=== PATIENT | female | born 1950 | race Caucasian/White ===

== ENCOUNTER → 2016-12-06 | Outpatient (CLI) | payer MEDICARE, OTHER ==
[~2016-12-06] MED LIST: CELEXA20 MG PO; HYDROCODONE BIT1 T11 PO; NAPROSYN500 MG PO; NORCO 325 MG-51 TAB PO; SIMVASTATIN20 MG; SYNTHROID,LEV112 MCG PO; VICODIN 5/500 505 MG PO; VIGAMOX 0.5% 3 M3 ML OPH; ZOFRAN4 MG PO
== END | disposition home or self-care (01) ==
LOC: US 14:36
DX: K76.0 Fatty (change of) liver, not elsewhere classified (principal); R10.11 Right upper quadrant pain

== ENCOUNTER → 2017-06-04 | Outpatient (CLI) | payer MEDICARE, OTHER | LOC: MAMMO 07:27 | DX: Z12.31 Encounter for screening mammogram for malignant neoplasm of breast (principal) ==

== ENCOUNTER → 2017-07-11 | Day surgery (SDC) | payer MEDICARE, OTHER ==
[~2017-07-11] VITALS: Ht 162.5 cm; Wt 90.7 kg
[~2017-07-11] MED LIST changes: +GABAPENTIN600 MG PO; +SIMVASTATIN10 MG PO
--- NOTE | ~2017-07-11 | O ---
[place], [place] OPERATIVE NOTE NAME: MENG SAMS UNIT #: [id number] ROOM: DOCTOR: LATOYA RIOS MD BIRTHDATE: [birth year] DOS: 07/11/2017 GASTROENDOSCOPIC REPORT. INDICATIONS: The patient has presented with colonic screening concerns. PROCEDURE: Today's procedure part of investigation is colonoscopy plus polypectomies. PREMEDICATION: Versed and Diprivan. SCOPE: Olympus folding colonoscope 10L video. REPORT: After putting the patient in left lateral position and application of lubricant to rectal pouch and digital examination, scope was introduced. Thereafter, under direct visualization, I advanced through the length of colon without difficulty. Base of the cecum explored. Upon source identified ileocecal valve was defined. A 2 Sessile polypoid lesion from hepatic flexure, 1 sessile polypoid lesion from the rectal pouch was removed with piecemeal polypectomy technique. Evidence of moderate to severe diverticulosis, sigmoid colon was identified. Photographic series obtained. Air was suctioned out. The patient was extubated, tolerated procedure well. IMPRESSION: Diverticulosis, sessile polypoid lesion in rectal pouch and hepatic flexure, status post piecemeal polypectomy. PLAN: High fiber fruit diet. ACTIVITY: Ad kathleen. FOLLOWUP: Routinely with you in office, p.r.n. Visit with us in [facility]. I thank you very much indeed for your kind referral. [place], [place] OPERATIVE NOTE NAME: FLAQUITAMENG UNIT #: [id number] ROOM: DOCTOR: LATOYA RIOS MD BIRTHDATE: [birth year] LATOYA RIOS MD CM:OPRECORD:OPERATIVE NOTE [id number] LATOYA RIOS MD 07/11/17 1053 interface
--- NOTE | ~2017-07-11 | O ---
[place], [place] OPERATIVE NOTE NAME: MENG SAMS UNIT #: [id number] ROOM: DOCTOR: LATOYA RIOS MD BIRTHDATE: [birth year] DOS: 07/11/2017 GASTROENDOSCOPIC REPORT HISTORY OF PRESENT ILLNESS: A 67-year-old patient who is presented with chief complaint of concern about colonic screening as well persistent dyspepsia. ALLERGIES: SULFA. FAMILY HISTORY: Associated brother with pancreatic carcinoma. PAST SURGICAL HISTORY: Hysterectomy, tonsillectomy, and parathyroidectomy. PAST MEDICAL HISTORY: Hypothyroidism. SOCIAL HISTORY: Nonsmoker and nonalcohol consumer. PROCEDURE: Today's procedure part of investigation is panendoscopy and colonoscopy. PREMEDICATION: Versed and Diprivan. SCOPE: Olympus forward-viewing gastroscope Q10 video. REPORT: After putting the patient in left lateral position and application of lubricant to the scope, the scope was introduced. Thereafter, under direct visualization, I advanced through the length of esophagus without difficulty. Gastric pouch was entered. Gastritis of mild degree was noticed. Antral biopsy obtained. Duodenal bulb, second and third part within normal limit. The patient extubated, tolerated procedure well. IMPRESSION: Gastritis. PLAN AND DISCUSSION: The patient has been on Aleve, that could be the contributing factor. Therefore, we are going to start her on omeprazole 20 mg 1 a day and that would take care of her dyspepsia symptom. On the other hand, she is for colonic screening. We are going to proceed with colonoscopy today. [place], [place] OPERATIVE NOTE NAME: JANUARY SAMSINE Sanya UNIT #: [id number] ROOM: DOCTOR: LATOYA RIOS MD BIRTHDATE: [birth year] LATOYA RIOS MD CM:OPRECORD:OPERATIVE NOTE [phone] LATOYA RIOS MD 07/11/17 1047 interface
[2017-07-11 08:28] VITALS: BP 127/58
[2017-07-11 09:41] VITALS: BP 79/47
[2017-07-11 09:56] VITALS: BP 106/50
[2017-07-11 10:11] VITALS: BP 113/52
== END | disposition home or self-care (01) ==
LOC: SDC 07-08 11:00
DX: Z12.11 Encounter for screening for malignant neoplasm of colon (principal); K29.50 Unspecified chronic gastritis without bleeding; D12.3 Benign neoplasm of transverse colon; D12.8 Benign neoplasm of rectum; Z88.1 Allergy status to other antibiotic agents; Z90.710 Acquired absence of both cervix and uterus; E03.9 Hypothyroidism, unspecified; Z98.890 Other specified postprocedural states; K57.30 Diverticulosis of large intestine without perforation or abscess without bleeding; Z82.49 Family history of ischemic heart disease and other diseases of the circulatory system

== ENCOUNTER → 2018-06-25 | Outpatient (CLI) | payer MEDICARE, OTHER ==
[2018-06-25 11:09] LABS: ALBUMIN 3.4 gm/dl (3.1-4.5); ALKALINE PHOSPHATASE 79 U/L (45-117); BUN 19 mg/dl (7-24); CHLORIDE 105 mmol/L (98-107); POTASSIUM 4.6 mmol/L (3.5-5.1); SGOT/AST 20 IU/L (3-35); SGPT/ALT 28 U/L (12-78); SODIUM 140 mmol/L (136-145); TOTAL PROTEIN 7.2 gm/dL (6.4-8.2)
== END | disposition home or self-care (01) ==
LOC: LAB 01:14 → CT 11:00
PROVIDERS: Family Medicine
DX: K76.0 Fatty (change of) liver, not elsewhere classified (principal)

== ENCOUNTER → 2020-07-06 | Outpatient (CLI) | payer MEDICARE | END | disposition home or self-care (01) | LOC: MAMMO 01:18 | PROVIDERS: ATTEND Nurse Practitioner Family | DX: Z12.31 Encounter for screening mammogram for malignant neoplasm of breast (principal); N63.11 Unspecified lump in the right breast, upper outer quadrant; N63.10 Unspecified lump in the right breast, unspecified quadrant; N64.89 Other specified disorders of breast ==

== ENCOUNTER → 2021-02-13 | Outpatient (CLI) | payer MEDICARE ==
[2021-02-13 09:11] LABS: HEMATOCRIT 37.1 % (37.0-47.0); MEAN CELL VOLUME 100.3 fl (81.0-99.0); MEAN CORPUSCULAR HGB 32.7 pg (27.0-31.0); MEAN CORPUSCULAR HGB CONC 32.6 g/dl (33.0-37.0); MEAN PLATELET VOLUME 9.7 fl (9.6-12.3); RED BLOOD COUNT 3.7 10*6/uL (4.10-5.10); RED CELL DISTRI WIDTH 12.7 % (0-14.5); WHITE BLOOD COUNT 6.1 10*3/uL (4.8-10.8)
[2021-02-13 09:43] LABS: ALBUMIN 3.5 gm/dl (3.1-4.5); ALKALINE PHOSPHATASE 76 U/L (45-117); BUN 31 mg/dl (7-24); CHLORIDE 110 mmol/L (98-107); CHOLESTEROL 216 mg/dL (<200); CPK 118 U/L (26-192); CREATININE 0.94 mg/dL (0.55-1.02); LDL CHOLESTEROL 139 mg/dL (9-159); SGOT/AST 14 IU/L (3-35); SGPT/ALT 24 U/L (12-78); SODIUM 142 mmol/L (136-145); TOTAL PROTEIN 6.8 gm/dL (6.4-8.2); TRIGLYCERIDES 87 mg/dl (<150)
[2021-02-13 09:47] LABS: THYROID STIM HORMONE (HS) 0.383 uIU/ml (0.358-4.75)
== END | disposition home or self-care (01) ==
LOC: LAB 08:38
PROVIDERS: ATTEND Family Medicine
DX: E78.00 Pure hypercholesterolemia, unspecified (principal); E03.9 Hypothyroidism, unspecified; F41.1 Generalized anxiety disorder

== ENCOUNTER → 2021-05-28 | Outpatient (CLI) | payer MEDICARE ==
[2021-05-28 08:38] LABS: HEMATOCRIT 37.6 % (37.0-47.0); MEAN CORPUSCULAR HGB 32.7 pg (27.0-31.0); MEAN CORPUSCULAR HGB CONC 32.7 g/dl (33.0-37.0); MEAN PLATELET VOLUME 9.6 fl (9.6-12.3); RED BLOOD COUNT 3.76 10*6/uL (4.10-5.10); RED CELL DISTRI WIDTH 12.9 % (0-14.5); WHITE BLOOD COUNT 7.4 10*3/uL (4.8-10.8)
[2021-05-28 09:01] LABS: CHLORIDE 109 mmol/L (98-107); POTASSIUM 4.1 mmol/L (3.5-5.1); SODIUM 142 mmol/L (136-145)
[2021-05-28 09:16] LABS: ALBUMIN 3.3 gm/dl (3.1-4.5); ALKALINE PHOSPHATASE 83 U/L (45-117); BUN 22 mg/dl (7-24); CHOLESTEROL 181 mg/dL (<200); CPK 69 U/L (26-192); CREATININE 0.98 mg/dL (0.55-1.02); LDL CHOLESTEROL 95 mg/dL (9-159); SGOT/AST 16 IU/L (3-35); SGPT/ALT 23 U/L (12-78); THYROID STIM HORMONE (HS) 0.356 uIU/ml (0.358-4.75); TOTAL PROTEIN 6.9 gm/dL (6.4-8.2); TRIGLYCERIDES 104 mg/dl (<150)
== END | disposition home or self-care (01) ==
LOC: LAB 08:10
PROVIDERS: ATTEND Family Medicine
DX: I10 Essential (primary) hypertension (principal); E78.00 Pure hypercholesterolemia, unspecified; F41.1 Generalized anxiety disorder; E74.00 Glycogen storage disease, unspecified

== ENCOUNTER 2022-06-23 00:04 | Emergency (ER) | payer MEDICARE ==
[~2022-06-23] VITALS: Ht 162.5 cm; Wt 81.6 kg
[2022-06-23 00:14] VITALS: BP 121/67
[2022-06-23 00:31] LABS: BASO % 0.4 % (0.0-1.0); EOS # 0.6 10*3/uL (0.0-0.4); EOS % 5.8 % (1.0-4.0); HEMATOCRIT 37.9 % (37.0-47.0); LYMPH # 3.5 10*3/uL (1.3-4.4); LYMPH % 36.6 % (27.0-41.0); MEAN CELL VOLUME 99.5 fl (81.0-99.0); MEAN CORPUSCULAR HGB 32.5 pg (27.0-31.0); MEAN CORPUSCULAR HGB CONC 32.7 g/dl (33.0-37.0); MEAN PLATELET VOLUME 9.4 fl (9.6-12.3); MONO # 0.7 10*3/uL (0.1-1.0); MONO % 7.7 % (3.0-9.0); NEUT # 4.8 10*3/uL (2.3-7.9); NEUT % 49.3 % (47.0-73.0); PLATELET COUNT AUTOMATED 237 10*3/uL (130-400); RED BLOOD COUNT 3.81 10*6/uL (4.10-5.10); WHITE BLOOD COUNT 9.6 10*3/uL (4.8-10.8)
[2022-06-23 00:38] LABS: BILIRUBIN Negative (Negative); BLOOD Negative (Negative); CLARITY Clear (Clear); COLOR Yellow (Yellow); GLUCOSE Negative (Negative); KETONE Negative (Negative); LEUKO ESTERASE 3+ (Negative); NITRITE Negative (Negative); UROBILINOGEN 0.2 E.U./dl (0.0-1.0)
[2022-06-23 00:45] LABS: BACTERIA 2+; WBC 21-30 wbc/hpf (0-5)
[2022-06-23 00:46] LABS: ALKALINE PHOSPHATASE 78 U/L (46-116); BUN 16 mg/dl (9-23); CHLORIDE 103 mmol/L (98-107); LIPASE 67 U/L (12-53); POTASSIUM 4.4 mmol/L (3.4-5.1); SGPT/ALT 11 U/L (10-49); TOTAL PROTEIN 6.8 gm/dL (6.0-8.0)
[2022-06-23] MEDS ORDERED: Ondansetron4 MG PO (01:40)
[2022-06-23] MEDS ORDERED: PERCOCET 5-3251 EACH PO (01:40)
[2022-06-23] MEDS ORDERED: CEFDINIR300 MG PO (01:40)
== END 2022-06-23 01:55 | disposition home or self-care (01) ==
LOC: ED 00:04
PROVIDERS: Emergency Medicine
DX: N10 Acute pyelonephritis (principal); R10.11 Right upper quadrant pain; R10.31 Right lower quadrant pain; Z88.2 Allergy status to sulfonamides; Z88.1 Allergy status to other antibiotic agents; Z90.710 Acquired absence of both cervix and uterus; Z98.890 Other specified postprocedural states; Z90.89 Acquired absence of other organs

== ENCOUNTER → 2022-07-10 | Outpatient (CLI) | payer MEDICARE ==
[~2022-07-10] MED LIST changes: +CEFDINIR300 MG PO; +Ondansetron4 MG PO; +PERCOCET 5-3251 EACH PO
== END | disposition home or self-care (01) ==
LOC: NM 07:00
PROVIDERS: ATTEND Family Medicine
DX: R10.11 Right upper quadrant pain (principal); R11.0 Nausea; K30 Functional dyspepsia; R19.7 Diarrhea, unspecified

== ENCOUNTER → 2024-06-30 | Outpatient (CLI) | payer MEDICARE | END | disposition home or self-care (01) | LOC: MAMMO 00:35 | PROVIDERS: ATTEND Family Medicine | DX: Z12.31 Encounter for screening mammogram for malignant neoplasm of breast (principal) ==

== ENCOUNTER 2024-11-26 07:08 | Emergency (ER) | payer MEDICARE ==
[~2024-11-26] VITALS: Ht 167.6 cm; Wt 81.6 kg
[2024-11-26 07:08] VITALS: BP 174/55
[2024-11-26] MEDS ORDERED: SODIUM CHLORIDE 0.9% 1,000 ML IV ONE (07:15)
[2024-11-26] MEDS ORDERED: diazePAM 5 MG TAB PO ONE (07:15)
[2024-11-26] MEDS ORDERED: Meclizine Hydrochloride 25 MG TAB PO ONE ×2 (07:15→09:15)
[2024-11-26] MEDS ORDERED: Ondansetron Hydrochloride 4 MG/2 ML VIAL IV ONE (07:15)
[2024-11-26 07:43] LABS: BASO % 0.8 % (0.0-1.0); EOS # 0.3 10*3/uL (0.0-0.4); EOS % 5.1 % (1.0-4.0); HEMATOCRIT 32.5 % (37.0-47.0); MEAN CELL VOLUME 100.6 fl (81.0-99.0); MEAN CORPUSCULAR HGB 32.8 pg (27.0-31.0); MEAN CORPUSCULAR HGB CONC 32.6 g/dl (33.0-37.0); MEAN PLATELET VOLUME 9.4 fl (9.6-12.3); MONO # 0.4 10*3/uL (0.1-1.0); MONO % 7.2 % (3.0-9.0); NEUT # 2.9 10*3/uL (2.3-7.9); NEUT % 55.1 % (47.0-73.0); PLATELET COUNT AUTOMATED 186 10*3/uL (130-400); RED BLOOD COUNT 3.23 10*6/uL (4.10-5.10); RED CELL DISTRI WIDTH 13.6 % (0-14.5); WHITE BLOOD COUNT 5.3 10*3/uL (4.8-10.8)
[2024-11-26 08:13] LABS: POTASSIUM 4.3 mmol/L (3.4-5.1)
[2024-11-26] MEDS ORDERED: Ondansetron4 MG PO (08:50)
[2024-11-26] MEDS ORDERED: ANTIVERT25 M2 PO (08:50)
== END 2024-11-26 10:46 | disposition home or self-care (01) ==
LOC: ED 07:08
PROVIDERS: Emergency Medicine
DX: R42 Dizziness and giddiness (principal); R11.2 Nausea with vomiting, unspecified; Z79.899 Other long term (current) drug therapy; Z88.1 Allergy status to other antibiotic agents; Z88.2 Allergy status to sulfonamides; Z90.710 Acquired absence of both cervix and uterus; Z98.890 Other specified postprocedural states